=== PATIENT | male | born 1995 | race Caucasian/White ===

== ENCOUNTER 2024-09-28 14:17 | Emergency (ER) | payer OTHER, SELFPAY ==
[2024-09-28 14:27] VITALS: BP 128/98
--- NOTE | 2024-09-28 14:30 | ED.GENMED ---
ED Provider Triage
<Lina Crump PA-C - Last Filed: 09/28/24 14:32>
-
Patient seen by provider in Triage?: Seen in Triage
Attestation: A medical screening examination has been initiated by a qualified medical provider. Based on the assessment performed at this time, it has been determined that an emergent medical condition may exist and the patient has been informed
that further medical evaluation and possible additional diagnostic testing may be needed.
HPI: 29yoM here with involuntary movements. Hx of conversion disorder with uncontrolled tics/movements. Has been seen multiple times at [facility] for the same and diagnosed with conversion disorder. Has been in a psych residential treatment
center for over a month. He was given 1mg PO Ativan about an hour ago without improvement so they sent him in via EMS.
GENERAL: Alert , in no apparent distress
EYE: No visual abnormalities.
NECK: Trachea midline
ENT: No visible abnormalities.
LUNGS: No acute respiratory distress
NEUROLOGICAL: Alert and oriented
SKIN: Skin intact. No visible changes.
MUSCULOSKELETAL: Moving extremities normally
PSYCH: Normal and appropriate interaction.
This is a medical evaluation conducted in person to initiate diagnostic evaluation and provide initial therapeutics. Please see further documentation by the treating clinician.
Basic labs ordered.
<Elbert Jimenez DO - Last Filed: 09/28/24 17:36>
-
Attestation: A medical screening examination has been initiated by a qualified medical provider. Based on the assessment performed at this time, it has been determined that an emergent medical condition may exist and the patient has been informed
that further medical evaluation and possible additional diagnostic testing may be needed.
HPI: 29yoM here with involuntary movements. Hx of conversion disorder with uncontrolled tics/movements. Has been seen multiple times at [facility] for the same and diagnosed with conversion disorder. Has been in a psych residential
treatment center for over a month. He was given 1mg PO Ativan about an hour ago without improvement so they sent him in via EMS.
GENERAL: Alert , in no apparent distress
EYE: No visual abnormalities.
NECK: Trachea midline
ENT: No visible abnormalities.
LUNGS: No acute respiratory distress
NEUROLOGICAL: Alert and oriented
SKIN: Skin intact. No visible changes.
MUSCULOSKELETAL: Moving extremities normally
PSYCH: Normal and appropriate interaction.
This is a medical evaluation conducted in person to initiate diagnostic evaluation and provide initial therapeutics. Please see further documentation by the treating clinician.
Basic labs ordered.
History of Present Illness
<Lina Crump PA-C - Last Filed: 09/28/24 14:32>
General
Chief Complaint: Crisis Evaluation
Time Seen by Provider: 09/28/24 15:03
<Elbert Jimenez DO - Last Filed: 09/28/24 17:36>
History of Present Illness
History of Present Illness:
TIME OF INITIAL ENCOUNTER: 3:05 PM
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 Came in by EMS from [facility] due to recurrent shaking episodes lasting a few seconds at a
time. Happened a few times while I was talking to him; very pleasant. On Strattera, Risperdal, Prozac and had been weaning off Ativan - no Ativan last two nights (had been down to 0.5mg). Was given 1mg Ativan and now better, but the episodes
persist. Said he has had neuro-imaging, EEG, labs reportedly all normal. No urinary incontinence.
EXAM:
GENERAL: Well appearing in no distress
HEENT: Moist oral mucosa, no tongue bite galarza
CARDIOVASCULAR: No murmurs, tachycardic heart rate, regular rhythm, No chest wall tenderness
PULMONARY: No respiratory distress, breath sounds are clear and equal
ABDOMEN: Soft with no peritoneal signs, no tenderness
NEUROLOGIC: Excellent strength all extremities, no coordination deficits
PSYCHIATRIC: Appropriate mental status, normal insight and judgement
EXTREMITIES: Nontender, no edema, moves all extremities equally
SKIN: No rash, no lesions
NUMBER AND COMPLEXITY OF PROBLEMS ADDRESSED AT THE ENCOUNTER
� Chronic conditions affecting care: Conversion disorder, Generalized anxiety disorder
� Acute Exacerbation and/or Progression of Chronic Illness: This is a recurring problem
� Differential Diagnosis includes: Exacerbation of conversion disorder, benzo withdrawal, severe anxiety
AMOUNT AND/OR COMPLEXITY OF DATA TO BE REVIEWED AND ANALYZED
� I performed an independent evaluation of and my interpretation is:
EK:15 PM: EKG reviewed: Sinus 106, normal axis, nonspecific ST abnormality, normal intervals
CT:
X-rays:
Laboratory Studies:
Other:
� Review of other/old records: No old records available for review in [facility]
� Clinical information was obtained by an independent historian: EMS run sheet
� Prescriptions/Medications Considered but not given:
� Further testing considered but not performed:
RISK OF COMPLICATIONS AND/OR MORBIDITY OR MORTALITY OF PATIENT MANAGEMENT
� Social determinants of health affecting care: Currently is staying at [facility]
� Discussion with other providers: Notify Dr. Chavez to see in the Emergency Department and recommends outpatient management. At 3:30 PM, I spoke to Kenneth Garcia from [facility]. The patient did have a session with
his clinician today and he did appear more worried about his upcoming discharge in a few days. The patient ultimately wanted to be sent to the hospital for crisis evaluation.
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 Came in by
EMS from [facility] in [place] due to recurrent shaking episodes lasting a few seconds at a time. Happened a few times while I was talking to him; very pleasant. On Strattera, Risperdal, Prozac and had been weaning off Ativan - no Ativan
last two nights (had been down to 0.5mg). Was given 1mg Ativan and now better, but the episodes persist. Said he has had neuro-imaging, EEG, labs reportedly all normal.
ANY OTHER UPDATES:
During my evaluation initially at around 3:10 PM, the patient has had 3-4 episodes of shaking activity lasting a few seconds at a time.
3:24 PM: I called [facility] in [place] to try to get more information and I notified Dr. Nickerson
5:35 PM: Patient clinically stable with no significant issues. He will be discharged from the emergency department and wait over in crisis for their evaluation.
Phy Exam
<Elbert Jimenez DO - Last Filed: 09/28/24 17:36>
Physical Exam
Physical Exam:
See HPI
Course
<Lina Crump PA-C - Last Filed: 09/28/24 14:32>
Orders/Labs/Results
Orders:
Orders
09/28/24 15:26
Electrocardiogram (*1) Urgent
Reason for Study: Tachycardia
EKG- Treatment ONCE
09/28/24 15:34
Crisis Consult Urgent
Reason for Consult: Conversion disorder
09/28/24 14:31
09/28/24 14:32
Vital Signs
Initial and Last Documented VS:
Initial Vital Signs
Temp Pulse Resp BP Pulse Ox
36.6 C 138 16 128/98 100
09/28/24 14:27 09/28/24 14:27 09/28/24 14:27 09/28/24 14:27 09/28/24 14:27
Last Documented Vital Signs
Temp Pulse Resp BP Pulse Ox
36.6 C 109 18 128/98 99
09/28/24 14:27 09/28/24 15:50 09/28/24 15:50 09/28/24 14:27 09/28/24 15:50
<Elbert Jimenez DO - Last Filed: 09/28/24 17:36>
Orders/Labs/Results
Orders:
Orders
09/28/24 15:26
Electrocardiogram (*1) Urgent
Reason for Study: Tachycardia
EKG- Treatment ONCE
09/28/24 15:34
Crisis Consult Urgent
Reason for Consult: Conversion disorder
09/28/24 14:31
09/28/24 14:32
Vital Signs
Initial and Last Documented VS:
Initial Vital Signs
Temp Pulse Resp BP Pulse Ox
36.6 C 138 16 128/98 100
09/28/24 14:27 09/28/24 14:27 09/28/24 14:27 09/28/24 14:27 09/28/24 14:27
Last Documented Vital Signs
Temp Pulse Resp BP Pulse Ox
36.6 C 109 18 128/98 99
09/28/24 14:27 09/28/24 15:50 09/28/24 15:50 09/28/24 14:27 09/28/24 15:50
<Elbert Jimenez DO - Last Filed: 09/28/24 17:36>
*Critical Care Note
Total Time (30-74mins, 75-104mins- exclusive of procedures): Not Applicable
ED Attending Note
<Lina Crump PA-C - Last Filed: 09/28/24 14:32>
-
Portions of this chart may have been created with voice recognition software.� Occasional wrong word or��sound alike� substitutions may have occurred due to the inherent limitations of voice recognition software.
Discharge Plan
Departure
Patient Disposition: Home (Routine Discharge)
Date of Disposition: 09/28/24
Time of Disposition: 17:34
Patient with high blood pressure during this ER visit?: Yes
Discharge Problem:
Conversion disorder with abnormal movement
Referrals:
Janee,Alfa J, DO [Family Provider] -
Activity Restrictions/Additional Instructions:
EKG is unremarkable. Heart rate was initially elevated but overall improved throughout stay in the Emergency Department. I spoke to [facility] in [place] a couple of times. Continue Ativan as needed but would be best to try to limit the use given
high addiction potential.
Interventions
Interventions:
*Risk Screen - Suicide Last Done: 09/28/24 14:19
*Neglect/Abuse Screening Last Done: 09/28/24 14:27
ED-Psychological Assessment Last Done: 09/28/24 15:58
Discharge Date and Time
Print Language: [id number]
[2024-09-28 18:30] VITALS: BP 128/75
== END 2024-09-28 18:50 | disposition home or self-care (01) ==
LOC: EMR 14:17
PROVIDERS: EMERGENCY PHYSICIAN Emergency Medicine; FAMILY PHYSICIAN Family Medicine
DX: F44.4 Conversion disorder with motor symptom or deficit (principal)
CPT/HCPCS: 99283; 93005